=== PATIENT | male | born 1985 | race African-American/Black ===

== ENCOUNTER 2021-08-07 12:02 | Emergency (ER) | payer MEDICAID ==
[~2021-08-07] VITALS: Ht 182.9 cm; Wt 82.0 kg
[2021-08-07 12:13] VITALS: BP 131/67
[2021-08-07] MEDS ORDERED: BO1 TP (13:32)
== END 2021-08-07 14:02 | disposition home or self-care (01) ==
LOC: ER 12:02
DX: S80.812A Abrasion, left lower leg, initial encounter (principal); Z20.822 Contact with and (suspected) exposure to COVID-19; W18.30XA Fall on same level, unspecified, initial encounter; Y93.89 Activity, other specified; Y92.89 Other specified places as the place of occurrence of the external cause; Y99.8 Other external cause status
CPT/HCPCS: 87426; 99283